=== PATIENT | female | born 1955 ===

== ENCOUNTER 2017-05-12 09:17 | Emergency (ER) | payer OTHER ==
[2017-05-12 09:20] VITALS: BMI 27.3
[2017-05-12 09:23] VITALS: TEMP 97.9; O2SAT 100
[2017-05-12] MEDS ORDERED: Sodium Chloride 0.9% 1,000 ML IV ONE (09:37)
--- NOTE | 2017-05-12 09:45 | C.PDOC ---
History Of Present Illness 61 y/o female presents to ED with complaints of abdominal pain and diarrhea for a "few days. Patient states she has bowel movement after eating and states it is watery. Patient denies fever, chills, nausea, vomiting, bowel incontinence or any other complaints at this time. Time Seen by Provider: 05/12/17 09:26 Chief Complaint (Nursing): Abdominal Pain History Per: Patient History/Exam Limitations: no limitations Onset/Duration Of Symptoms: Days Current Symptoms Are (Timing): Still Present Location Of Pain/Discomfort: Diffuse Associated Symptoms: Diarrhea Past Medical History Reviewed: Historical Data, Nursing Documentation, Vital Signs Vital Signs: Last Vital Signs Temp 97.9 F 05/12/17 09:20 Pulse 68 05/12/17 11:05 Resp 16 05/12/17 11:05 BP 118/71 05/12/17 11:05 Pulse Ox 100 05/12/17 11:05 - Medical History PMH: No Chronic Diseases Surgical History: No Surg Hx Family History: States: No Known Family Hx - Social History Hx Alcohol Use: No Hx Substance Use: No - Immunization History Hx Tetanus Toxoid Vaccination: No Hx Influenza Vaccination: No Hx Pneumococcal Vaccination: No Review Of Systems Constitutional: Negative for: Fever, Chills Gastrointestinal: Positive for: Abdominal Pain, Diarrhea. Negative for: Nausea , Vomiting, Hematochezia Skin: Negative for: Rash Physical Exam - Physical Exam Appears: Non-toxic, No Acute Distress Skin: Warm, Dry, No Rash Head: Atraumatic, Normacephalic Oral Mucosa: Moist Neck: Normal ROM, Supple Cardiovascular: Rhythm Regular Respiratory: Normal Breath Sounds, No Rales, No Rhonchi, No Wheezing Gastrointestinal/Abdominal: Soft, No Tenderness, No Guarding, No Rebound Back: No CVA Tenderness Extremity: Normal ROM, Capillary Refill (<2 seconds) Neurological/Psych: Oriented x3 Gait: Steady ED Course And Treatment - Laboratory Results Result Diagrams: 05/12/17 09:48 05/12/17 09:48 Lab Interpretation: Normal O2 Sat by Pulse Oximetry: 100 (RA) Pulse Ox Interpretation: Normal - Other Rad No standard instances X-Ray: Viewed By Me, Read By Radiologist Interpretation: ABDOMEN AND PELVIS: Bowel: Prominent amount of retained colonic stool. No evidence of mechanical obstruction. Free air: None. Bones: Unremarkable. Other findings: None. IMPRESSION: Unremarkable radiographs of chest and abdomen. No evidence of mechanical bowel obstruction. Progress Note: Blood work, UA ordered. IV fluids administered. On re- evaluation abdomen soft non-tender. discharge in stable condition Reassessment Condition: Improved Disposition Counseled Patient/Family Regarding: Studies Performed, Diagnosis, Need For Followup, Rx Given - Disposition Referrals: [facility] [Outside] [facility] [Outside] Disposition: HOME/ ROUTINE Disposition Time: 11:00 Condition: STABLE Additional Instructions: Drink lots of fluids Follow up with PMD or clinic for further evaluation Prescriptions: Polyethylene Glycol 3350 [Miralax] 17 gm PO DAILY #20 packet Instructions: Constipation in Adults Forms: [employer] (Vietnamese) Print Language: CUBAN - Clinical Impression Clinical Impression: Abdominal pain, Diarrhea - 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 - Scribe Statement The provider has reviewed the documentation as recorded by the Kattyibrichy Sanchez All medical record entries made by the Kattyibe were at my direction and personally dictated by me. I have reviewed the chart and agree that the record accurately reflects my personal performance of the history, physical exam, medical decision making, and the department course for this patient. I have also personally directed, reviewed, and agree with the discharge instructions and disposition.
[2017-05-12 09:57] LABS: BASO # 0.1 K/uL (0.0-0.2); EOS # 0.1 K/uL (0.0-0.7); EOS % 2.1 % (0.0-4.0); HEMOGLOBIN 12.8 g/dL (11.0-16.0); LYMPH # 1.4 K/uL (1.0-4.3); LYMPH % 26.3 % (20.0-40.0); MEAN CELL VOLUME 92.2 fL (81.0-99.0); MEAN CORPUSCULAR HEMOGLOBIN 31.6 pg (27.0-31.0); MEAN CORPUSCULAR HGB CONC 34.3 g/dL (33.0-37.0); MEAN PLATELET VOLUME 7.9 fL (7.2-11.7); MONO # 0.6 K/uL (0.0-0.8); NEUT # 3.3 K/uL (1.8-7.0); NEUT % 59.6 % (50.0-75.0); NRBC % 0.1 % (0.0-2.0); RBC 4.06 Mil/uL (3.80-5.20); RED CELL DISTRIBUTION WIDTH 13.4 % (11.5-14.5); SQUAMOUS EPITHIAL 3 /hpf (0-5); URINE BILIRUBIN NEGATIVE (NEGATIVE); URINE BLOOD NEGATIVE (NEGATIVE); URINE CLARITY Clear (Clear); URINE COLOR Yellow (YELLOW); URINE GLUCOSE (UA) NORMAL (Normal); URINE LEUKOCYTE ESTERASE TRACE Leu/uL (Negative); URINE PROTEIN NEGATIVE (NEGATIVE); URINE UROBILINOGEN NORMAL mg/dL (0.2-1.0); WHITE BLOOD COUNT 5.5 K/uL (4.8-10.8)
[2017-05-12 10:15] LABS: ALB/GLOB RATIO 1.2 (1.0-2.1); ALT/SGPT 132 U/L (9-52); AST/SGOT 75 U/L (14-36); BLOOD UREA NITROGEN 14 mg/dL (7-17); CALCIUM 8.8 mg/dl (8.6-10.4); GFR AFRICAN-AMERICAN > 60; GFR NON-AFRICAN AMERICAN > 60; LIPASE 80 U/L (23-300)
--- NOTE | 2017-05-12 10:35 | RAD ---
PROCEDURE: Radiographs of the chest and abdomen (obstructive series) HISTORY: Abd Pain COMPARISON: No prior. TECHNIQUE: AP radiograph of the chest, with upright and supine radiographs of the abdomen. FINDINGS: CHEST: Lungs: Clear. Cardiovascular: Normal size heart. No pulmonary vascular congestion. Pleura: No pleural fluid. No pneumothorax. Other findings: None. ABDOMEN AND PELVIS: Bowel: Prominent amount of retained colonic stool. No evidence of mechanical obstruction. Free air: None. Bones: Unremarkable. Other findings: None. IMPRESSION: Unremarkable radiographs of chest and abdomen. No evidence of mechanical bowel obstruction.
[2017-05-12 11:06] VITALS: BP 118/71; PULSE 68; RESP 16
== END 2017-05-12 11:21 | disposition home or self-care (01) ==
LOC: C.ER 09:17
DX: R19.7 Diarrhea, unspecified (principal); R10.9 Unspecified abdominal pain
CPT/HCPCS: 74022; 80053; 81001; 83690; 85025; 96360; 99284; J7040

== ENCOUNTER 2017-06-30 09:26 | Emergency (ER) | payer OTHER ==
[2017-06-30 09:26] VITALS: BMI 27.3
[2017-06-30 09:38] VITALS: BP 132/82; PULSE 75; RESP 16; TEMP 98.1; O2SAT 100
--- NOTE | 2017-06-30 10:13 | RAD ---
PROCEDURE: Radiographs of the Left Shoulder HISTORY: r/o fx COMPARISON: No prior. FINDINGS: BONES: No acute fracture. JOINTS: Mild glenohumeral and acromioclavicular joint degenerative change. SOFT TISSUES: Normal. OTHER FINDINGS: None. IMPRESSION: No demonstrated fracture or dislocation. Mild shoulder degenerative changes.
--- NOTE | 2017-06-30 10:24 | C.PDOC ---
History Of Present Illness 61 y/o female presents to the ED complaining of left trapezius pain radiating down the left arm, onset today. Denies acute trauma or fall. Patient has not taken any medication for symptom relief. Denies any changes in sensation or focal weakness. Time Seen by Provider: 06/30/17 10:05 Chief Complaint (Nursing): Upper Extremity Problem/Injury History Per: Patient History/Exam Limitations: no limitations Onset/Duration Of Symptoms: Hrs Current Symptoms Are (Timing): Still Present Past Medical History Reviewed: Historical Data, Nursing Documentation, Vital Signs Vital Signs: Last Vital Signs Temp 98.1 F 06/30/17 09:34 Pulse 75 06/30/17 09:34 Resp 16 06/30/17 09:34 BP 132/82 06/30/17 09:34 Pulse Ox 100 06/30/17 10:47 Other Surgeries: Hysterectomy Family History: States: Unknown Family Hx - Social History Hx Tobacco Use: No Hx Alcohol Use: No Hx Substance Use: No - Immunization History Hx Tetanus Toxoid Vaccination: No Hx Influenza Vaccination: No Hx Pneumococcal Vaccination: No Review Of Systems Except As Marked, All Systems Reviewed And Found Negative. Cardiovascular: Negative for: Chest Pain Respiratory: Negative for: Shortness of Breath Musculoskeletal: Positive for: Shoulder Pain, Arm Pain Neurological: Negative for: Weakness, Numbness Physical Exam - Physical Exam Appears: Non-toxic, No Acute Distress Skin: Normal Color, Warm, Dry Head: Atraumatic, Normacephalic Eye(s): bilateral: Normal Inspection, PERRL, EOMI Neck: Normal ROM Chest: Symmetrical Extremity: Normal ROM, Tenderness (to the left trapezius; on compression of the trapezius, pt complains of pain radiating down left arm), Capillary Refill (< 2 sec), No Deformity, No Swelling Pulses: Left Radial: Normal, Right Radial: Normal Neurological/Psych: Oriented x3, Normal Speech, No Other (focal deficits) ED Course And Treatment O2 Sat by Pulse Oximetry: 100 (RA) Pulse Ox Interpretation: Normal - Other Rad XR L SHOULDER X-Ray: Viewed By Me, Read By Radiologist Interpretation: FINDINGS: BONES: No acute fracture. JOINTS: Mild glenohumeral and acromioclavicular joint degenerative change. SOFT TISSUES: Normal. OTHER FINDINGS: None. IMPRESSION: No demonstrated fracture or dislocation. Mild shoulder degenerative changes. 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 Instructions: Muscle Strain Forms: [employer] (Mongolian) Print Language: CROATIAN - POA Present On Arrival: None - Clinical Impression Clinical Impression: Muscle strain - Scribe Statement The provider has reviewed the documentation as recorded by the Scribe (Kailyn Julian) Provider Attestation: All medical record entries made by the Scribe were at my direction and personally dictated by me. I have reviewed the chart and agree that the record accurately reflects my personal performance of the history, physical exam, medical decision making, and the department course for this patient. I have also personally directed, reviewed, and agree with the discharge instructions and disposition.
== END 2017-06-30 10:27 | disposition home or self-care (01) ==
LOC: C.ER 09:26
DX: S46.912A Strain of unspecified muscle, fascia and tendon at shoulder and upper arm level, left arm, initial encounter (principal)

== ENCOUNTER 2018-06-25 10:33 | Observation (INO) | payer OTHER ==
[2018-06-25 10:33] VITALS: BMI 27.3
[2018-06-25] MEDS ORDERED: Sodium Chloride 0.9% 500 ML IV STA (11:17)
--- NOTE | 2018-06-25 11:21 | C.PDOC ---
History Of Present Illness 62 y/o female pt presents to the ER c/o epigastric abdominal pain for x1 day. Associated sx includes congestion, cough, x1 episode of vomiting and body ache. Pt denies fever, chills, chest pain, SOB and headache. Pt does not have a [facility] doctor and is a pt at [facility]. Time Seen by Provider: 06/25/18 10:50 Chief Complaint (Nursing): Flu-like Symptoms History Per: Patient History/Exam Limitations: no limitations Onset/Duration Of Symptoms: Days (x1) Current Symptoms Are (Timing): Still Present Past Medical History Reviewed: Historical Data, Nursing Documentation, Vital Signs Vital Signs: Last Vital Signs Temp 98.6 F 06/25/18 10:39 Pulse 82 06/25/18 10:39 Resp 18 06/25/18 10:39 BP 136/72 06/25/18 10:39 Pulse Ox 100 06/25/18 10:39 Family History: States: Unknown Family Hx - Social History Hx Tobacco Use: No Hx Alcohol Use: No Hx Substance Use: No - Immunization History Hx Tetanus Toxoid Vaccination: No Hx Influenza Vaccination: No Hx Pneumococcal Vaccination: No Review Of Systems Except As Marked, All Systems Reviewed And Found Negative. Constitutional: Positive for: Other (congestion). Negative for: Fever, Chills Cardiovascular: Negative for: Chest Pain Respiratory: Negative for: Shortness of Breath Gastrointestinal: Positive for: Vomiting (1 episode ), Abdominal Pain (epigastric) Musculoskeletal: Positive for: Other (body ache ) Neurological: Negative for: Headache Physical Exam - Physical Exam Appears: Non-toxic, No Acute Distress Skin: Warm, Dry Head: Normacephalic Eye(s): bilateral: EOMI Ear(s): Bilateral: Normal Nose: Normal Oral Mucosa: Moist Throat: Normal, No Erythema, No Exudate Chest: Symmetrical Cardiovascular: Rhythm Regular Respiratory: Normal Breath Sounds, No Rales, No Rhonchi, No Wheezing Gastrointestinal/Abdominal: Soft, No Tenderness Neurological/Psych: Oriented x3, Normal Speech, Normal Cognition ED Course And Treatment - Laboratory Results Result Diagrams: 06/26/18 00:15 06/26/18 00:15 O2 Sat by Pulse Oximetry: 100 (RA) Pulse Ox Interpretation: Normal - Other Rad chest X-Ray: Read By Radiologist Interpretation: Accession No. : [id number]. Patient Name / ID : JAMEE ISAACS / [id number]. Exam Date : 06/25/2018 11:22:04 ( Approved ). Study Comment : Sex / Age : F / [id number]. Creator : Yolette Reina. Dictator : Lui Perez MD. Inspection Engineer : Director Part : Lui Perez MD. Approver2 : Report Date : 06/25/2018 11:27:24. My Comment : . Date of service: 06/25/2018. PROCEDURE: CHEST RADIOGRAPH, 1 VIEW. HISTORY: cough/cold. COMPARISON: 03/17/2018. FINDINGS: LUNGS: Clear. PLEURA: No pneumothorax or pleural fluid seen. CARDIOVASCULAR: No aortic atherosclerotic calcification present. Normal. OSSEOUS STRUCTURES: No significant abnormalities. VISUALIZED UPPER ABDOMEN: Normal. OTHER FINDINGS: None. IMPRESSION: No active disease. Progress Note: Plans: -- Blood work. -- EKG. Case was d/w Hospitalist who accepted patient to CT for observation. -- CXR. 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 - Scribe Statement The provider has reviewed the documentation as recorded by the Kattyibrichy Fuentes Do All medical record entries made by the Scribe were at my direction and personally dictated by me. I have reviewed the chart and agree that the record accurately reflects my personal performance of the history, physical exam, medical decision making, and the department course for this patient. I have also personally directed, reviewed, and agree with the discharge instructions and disposition. Decision To Admit - Pt Status Changed To: Hospital Disposition Of: Observation - . Bed Request Type: Regular Admitting Physician: Paul Gonzalez Patient Diagnosis: Body aches, Bandemia, Vomiting
[2018-06-25 11:51] LABS: BASO % 0.4 % (0.0-2.0); EOS % 0.3 % (0.0-4.0); HEMOGLOBIN 12.2 g/dL (11.0-16.0); LYMPH # 0.8 K/uL (1.0-4.3); LYMPH % 8.2 % (20.0-40.0); MEAN CORPUSCULAR HEMOGLOBIN 31.7 pg (27.0-31.0); MEAN CORPUSCULAR HGB CONC 34.4 g/dL (33.0-37.0); MEAN PLATELET VOLUME 8.2 fL (7.2-11.7); MONO # 0.3 K/uL (0.0-0.8); MONO % 3.5 % (0.0-10.0); NEUT # 8.3 K/uL (1.8-7.0); NEUT % 87.6 % (50.0-75.0); PLATELET COUNT 222 K/uL (130-400); RBC 3.86 Mil/uL (3.80-5.20); WHITE BLOOD COUNT 9.5 K/uL (4.8-10.8)
[2018-06-25 12:02] LABS: SQUAMOUS EPITHIAL < 1 /hpf (0-5); URINE AMORPHOUS SEDIMENT MODERATE /ul (<OCC); URINE BACTERIA RARE (<OCC); URINE BILIRUBIN NEGATIVE (NEGATIVE); URINE BLOOD NEGATIVE (NEGATIVE); URINE CLARITY Hazy (Clear); URINE COLOR Yellow (YELLOW); URINE GLUCOSE (UA) NORMAL (Normal); URINE LEUKOCYTE ESTERASE NEG Leu/uL (Negative); URINE PROTEIN NEGATIVE (NEGATIVE); URINE UROBILINOGEN NORMAL mg/dL (0.2-1.0)
[2018-06-25 12:11] LABS: ALB/GLOB RATIO 1.3 (1.0-2.1); ALBUMIN 3.8 g/dL (3.5-5.0); ALT/SGPT 58 U/L (9-52); AMYLASE 80 U/L (30-110); AST/SGOT 58 U/L (14-36); BLOOD UREA NITROGEN 12 mg/dL (7-17); CALCIUM 8.7 mg/dl (8.6-10.4); GFR NON-AFRICAN AMERICAN > 60; LIPASE 68 U/L (23-300)
[2018-06-25] MEDS ORDERED: Sodium Chloride 0.9% 500 ML IV ONE (12:15)
[2018-06-25 12:19] LABS: CK-MB 0.37 ng/mL (0.0-3.38)
[2018-06-25 12:29] LABS: INR 1.1; PROTHROMBIN TIME 11.5 SECONDS (9.7-12.2)
[2018-06-25 12:33] LABS: BANDS 19 % (0-2); LYMPHOCYTE 8 % (20-40); MONOCYTE 3 % (0-10); NEUTROPHIL 69 % (50-75); REACTIVE LYMPHOCYTES 1 % (0-0); TOTAL CELLS COUNTED 100
[2018-06-25 12:34] LABS: ANISOCYTOSIS SLIGHT; PLATELET ESTIMATE NORMAL (NORMAL)
[2018-06-25 12:35] LABS: TOXIC GRANULATION PRESENT
[2018-06-25 12:36] LABS: HYPOCHROMIC SLIGHT
[2018-06-25 12:37] LABS: LARGE PLATELETS PRESENT
[2018-06-25] MEDS ORDERED: Sodium Chloride 0.9% 1,000 ML ONE (12:47)
--- NOTE | 2018-06-25 12:53 | CP.PCM.HP ---
<Shaye De Santiago - Last Filed: 06/25/18 14:35> History of Present Illness - History of Present Illness History of Present Illness: PGY-1 Shaye De Santiago H&P for Dr. Gonzalez's service: Patient is a 62 yo female with no significant PMH who presents with weakness and dizziness. She says that she felt weak when she woke up this morning and thought her BP was low. She has diffuse body aches. She also complains of a runny nose and cough for which she has been taking Dayquil. Denies sore throat, chest pain, or SOB. She had one episode of vomiting after which she felt a little better. De nies nausea, abdominal pain, constipation, or diarrhea. She says she has had a normal appetite She denies sick contacts. Denies fevers and chills. Currently, she is no longer dizzy, and weakness improved after receiving fluids. PMH: vit D deficiency, latent TB PSH: hysterectomy 10 years ago Meds: none All: NKA FH: denies SH: lives with daughter, unemplyed, denies alcohol, tobacco, and drug use PMD: [place] Present on Admission - Present on Admission Any Indicators Present on Admission: No History of DVT/PE: No History of Uncontrolled Diabetes: No Urinary Catheter: No Decubitus Ulcer Present: No History Surgical Site Infection Following: None Review of Systems - Constitutional Constitutional: Fatigue, Weakness. absent: Chills, Fever, Headache - EENT Eyes: absent: Change in Vision Ears: absent: Decreased Hearing Nose/Mouth/Throat: Nasal Congestion. absent: Sore Throat - Cardiovascular Cardiovascular: absent: Chest Pain, Palpitations - Respiratory Respiratory: Cough. absent: Dyspnea - Gastrointestinal Gastrointestinal: Vomiting. absent: Abdominal Pain, Constipation, Diarrhea, Nausea - Genitourinary Genitourinary: absent: Dysuria, Hematuria - Reproductive: Female Reproductive:Female: S/P Hysterectomy - Musculoskeletal Musculoskeletal: Myalgias. absent: Numbness, Tingling - Integumentary Integumentary: absent: Lesions, Pruritus, Rash - Neurological Neurological: As Per HPI, Dizziness, Weakness. absent: Focal Weakness, Frequent Falls, Paresthesias, Sensory Deficit - Psychiatric Psychiatric: absent: Anxiety, Depression - Endocrine Endocrine: absent: Polydipsia, Polyuria - Hematologic/Lymphatic Hematologic: absent: Easy Bleeding, Easy Bruising, Lymphadenopathy Past Patient History - Infectious Disease Hx of Infectious Diseases: None - Tetanus Immunizations Tetanus Immunization: Unknown - Past Medical History & Family History Past Medical History?: Yes Past Family History: Reviewed and not pertinent - Past Social History Smoking Status: Never Smoked Chewing Tobacco Use: No Cigar Use: No Alcohol: None Drugs: Denies Home Situation {Lives}: With Family (daughter) - PSYCHIATRIC Hx Substance Use: No - SURGICAL HISTORY Hx Surgeries: Yes Hx Hysterectomy: Yes - ANESTHESIA Hx Anesthesia: Yes Hx Anesthesia Reactions: No Meds Allergies/Adverse Reactions: Allergies Allergy/AdvReac Type Severity Reaction Status Date / Time No Known Allergies Allergy Verified 06/30/17 09:38 Physical Exam - Constitutional Appears: Non-toxic, No Acute Distress - Head Exam Head Exam: ATRAUMATIC, NORMAL INSPECTION - Eye Exam Eye Exam: EOMI, Normal appearance, PERRL - ENT Exam ENT Exam: Mucous Membranes Moist, Normal Oropharynx - Neck Exam Neck exam: Positive for: Normal Inspection. Negative for: Lymphadenopathy, Tenderness - Respiratory Exam Respiratory Exam: Clear to Auscultation Bilateral, NORMAL BREATHING PATTERN. absent: Respiratory Distress - Cardiovascular Exam Cardiovascular Exam: Tachycardia, REGULAR RHYTHM, +S1, +S2 - GI/Abdominal Exam GI & Abdominal Exam: Soft. absent: Distended, Tenderness - Extremities Exam Extremities exam: Positive for: normal inspection, pedal pulses present. Negative for: pedal edema - Back Exam Back exam: NORMAL INSPECTION. absent: CVA tenderness (L), CVA tenderness (R) - Neurological Exam Neurological exam: Alert, CN II-XII Intact, Oriented x3 - Psychiatric Exam Psychiatric exam: Normal Affect, Normal Mood - Skin Skin Exam: Diaphoretic, Normal Color, Warm Results - Vital Signs Recent Vital Signs: Last Vital Signs Temp 98.6 F 06/25/18 10:39 Pulse 82 06/25/18 10:39 Resp 18 06/25/18 10:39 BP 136/72 06/25/18 10:39 Pulse Ox 100 06/25/18 12:47 - Labs Result Diagrams: 06/25/18 11:48 06/25/18 11:48 Labs: Laboratory Results - last 24 hr 06/25/18 06/25/18 06/25/18 11:48 11:48 11:48 WBC 9.5 D RBC 3.86 Hgb 12.2 Hct 35.5 MCV 92.0 MCH 31.7 H MCHC 34.4 RDW 13.0 Plt Count 222 MPV 8.2 Neut % (Auto) 87.6 H Lymph % (Auto) 8.2 L Garland % (Auto) 3.5 Eos % (Auto) 0.3 Baso % (Auto) 0.4 Neut # (Auto) 8.3 H Lymph # (Auto) 0.8 L Garland # (Auto) 0.3 Eos # (Auto) 0.0 Baso # (Auto) 0.0 Neutrophils % (Manual) 69 Band Neutrophils % 19 H* Lymphocytes % (Manual) 8 L Reactive Lymphs % 1 H Monocytes % (Manual) 3 Toxic Granulation Present Platelet Estimate Normal Large Platelets Present Hypochromasia (manual) Slight Anisocytosis (manual) Slight PT 11.5 INR 1.1 APTT 37.0 H Sodium Potassium Chloride Carbon Dioxide Anion Gap BUN Creatinine Est GFR ( Amer) Est GFR (Non-Af Amer) Random Glucose Calcium Total Bilirubin AST ALT Alkaline Phosphatase Total Creatine Kinase CK-MB (Mass) Total Protein Albumin Globulin Albumin/Globulin Ratio Amylase Lipase Urine Color Yellow Urine Clarity Hazy Urine pH 8.0 Ur Specific [place] 1.014 Urine Protein Negative Urine Glucose (UA) Normal Urine Ketones Negative Urine Blood Negative Urine Nitrate Negative Urine Bilirubin Negative Urine Urobilinogen Normal Ur Leukocyte Esterase Neg Urine WBC (Auto) 3 Urine RBC (Auto) 3 Ur Squamous Epith Cells < 1 Amorphous Sediment Moderate H Urine Bacteria Rare Influenza Typ A,B (EIA) 06/25/18 06/25/18 11:48 11:48 WBC RBC Hgb Hct MCV MCH MCHC RDW Plt Count MPV Neut % (Auto) Lymph % (Auto) Garland % (Auto) Eos % (Auto) Baso % (Auto) Neut # (Auto) Lymph # (Auto) Garland # (Auto) Eos # (Auto) Baso # (Auto) Neutrophils % (Manual) Band Neutrophils % Lymphocytes % (Manual) Reactive Lymphs % Monocytes % (Manual) Toxic Granulation Platelet Estimate Large Platelets Hypochromasia (manual) Anisocytosis (manual) PT INR APTT Sodium 141 Potassium 4.0 Chloride 107 Carbon Dioxide 25 Anion Gap 12 BUN 12 Creatinine 0.8 Est GFR ( Amer) > 60 Est GFR (Non-Af Amer) > 60 Random Glucose 104 D Calcium 8.7 Total Bilirubin 0.1 L AST 58 H D ALT 58 H D Alkaline Phosphatase 119 Total Creatine Kinase 66 CK-MB (Mass) 0.37 Total Protein 6.7 Albumin 3.8 Globulin 2.9 Albumin/Globulin Ratio 1.3 Amylase 80 Lipase 68 Urine Color Urine Clarity Urine pH Ur Specific [place] Urine Protein Urine Glucose (UA) Urine Ketones Urine Blood Urine Nitrate Urine Bilirubin Urine Urobilinogen Ur Leukocyte Esterase Urine WBC (Auto) Urine RBC (Auto) Ur Squamous Epith Cells Amorphous Sediment Urine Bacteria Influenza Typ A,B (EIA) Negative for flu a/b - Imaging and Cardiology Chest x-ray Status: Image reviewed by me Assessment & Plan - Assessment and Plan (Free Text) Assessment: Patient is a 62 yo female with no significant PMH who presents with flu-like illness. She is warm and tachycardiac on exam and has bandemia. Will hydrate and treat with antiviral and symptom management. Plan: Flu-like illness, acute - CXR: no active disease - Afebrile - Tachycardic - No leukocytosis but 19 bands - Rapid flu negative - NS @ 100 cc/hr - Tamiflu 75 mg PO BID x5 days - Mucinex LA 600 mg PO BID - Motrin 600 mg Q6H PRN - PT/OT Transaminitis, chronic - AST 58, ALT 58 - Hepatitis panel negative in 01/2018 - HIV pending - Avoid hepatotoxic agents - Recommend outpatient f/u Ppx: VTE: SCDs, heparin 5000 untis Q12H GI: Protonix 40 mg PO daily Diet: Heart healthy Code status: full code Dispo: Monitor labs in AM for resolution of bandemia. Monitor for fever. Case discussed with attending, Dr. Gonzalez. <Paul Gonzalez - Last Filed: 06/25/18 15:01> Results - Vital Signs Recent Vital Signs: Last Vital Signs Temp 99.6 F 06/25/18 14:22 Pulse 88 06/25/18 14:22 Resp 20 06/25/18 14:22 BP 155/87 H 06/25/18 14:22 Pulse Ox 98 06/25/18 14:22 - Labs Result Diagrams: 06/25/18 11:48 06/25/18 11:48 Labs: Laboratory Results - last 24 hr 06/25/18 06/25/18 06/25/18 11:48 11:48 11:48 WBC 9.5 D RBC 3.86 Hgb 12.2 Hct 35.5 MCV 92.0 MCH 31.7 H MCHC 34.4 RDW 13.0 Plt Count 222 MPV 8.2 Neut % (Auto) 87.6 H Lymph % (Auto) 8.2 L Garland % (Auto) 3.5 Eos % (Auto) 0.3 Baso % (Auto) 0.4 Neut # (Auto) 8.3 H Lymph # (Auto) 0.8 L Garland # (Auto) 0.3 Eos # (Auto) 0.0 Baso # (Auto) 0.0 Neutrophils % (Manual) 69 Band Neutrophils % 19 H* Lymphocytes % (Manual) 8 L Reactive Lymphs % 1 H Monocytes % (Manual) 3 Toxic Granulation Present Platelet Estimate Normal Large Platelets Present Hypochromasia (manual) Slight Anisocytosis (manual) Slight PT 11.5 INR 1.1 APTT 37.0 H Sodium Potassium Chloride Carbon Dioxide Anion Gap BUN Creatinine Est GFR ( Amer) Est GFR (Non-Af Amer) Random Glucose Calcium Total Bilirubin AST ALT Alkaline Phosphatase Total Creatine Kinase CK-MB (Mass) Total Protein Albumin Globulin Albumin/Globulin Ratio Amylase Lipase Urine Color Yellow Urine Clarity Hazy Urine pH 8.0 Ur Specific [place] 1.014 Urine Protein Negative Urine Glucose (UA) Normal Urine Ketones Negative Urine Blood Negative Urine Nitrate Negative Urine Bilirubin Negative Urine Urobilinogen Normal Ur Leukocyte Esterase Neg Urine WBC (Auto) 3 Urine RBC (Auto) 3 Ur Squamous Epith Cells < 1 Amorphous Sediment Moderate H Urine Bacteria Rare Influenza Typ A,B (EIA) 06/25/18 06/25/18 11:48 11:48 WBC RBC Hgb Hct MCV MCH MCHC RDW Plt Count MPV Neut % (Auto) Lymph % (Auto) Garland % (Auto) Eos % (Auto) Baso % (Auto) Neut # (Auto) Lymph # (Auto) Garland # (Auto) Eos # (Auto) Baso # (Auto) Neutrophils % (Manual) Band Neutrophils % Lymphocytes % (Manual) Reactive Lymphs % Monocytes % (Manual) Toxic Granulation Platelet Estimate Large Platelets Hypochromasia (manual) Anisocytosis (manual) PT INR APTT Sodium 141 Potassium 4.0 Chloride 107 Carbon Dioxide 25 Anion Gap 12 BUN 12 Creatinine 0.8 Est GFR ( Amer) > 60 Est GFR (Non-Af Amer) > 60 Random Glucose 104 D Calcium 8.7 Total Bilirubin 0.1 L AST 58 H D ALT 58 H D Alkaline Phosphatase 119 Total Creatine Kinase 66 CK-MB (Mass) 0.37 Total Protein 6.7 Albumin 3.8 Globulin 2.9 Albumin/Globulin Ratio 1.3 Amylase 80 Lipase 68 Urine Color Urine Clarity Urine pH Ur Specific [place] Urine Protein Urine Glucose (UA) Urine Ketones Urine Blood Urine Nitrate Urine Bilirubin Urine Urobilinogen Ur Leukocyte Esterase Urine WBC (Auto) Urine RBC (Auto) Ur Squamous Epith Cells Amorphous Sediment Urine Bacteria Influenza Typ A,B (EIA) Negative for flu a/b Attending/Attestation - Attestation I have personally seen and examined this patient.: Yes I have fully participated in the care of the patient.: Yes I have reviewed all pertinent clinical information: Yes Notes (Text): she is a 62 years old female came for body aches and pain,dizziness and weakness since this morning. Patient denies fever,no abdominal pain,no nausea,no vomiting and no diarrhea at home. Vomited once in the ER. No urinary symptoms,has dry cough. In the ER has normal chest xray. has bandemia and elevated LFT,h/o t ransaminitis,negative hep panel in the past.influenza negative and UA negative for Influenza .on exam she is warm and tacy,clear lungs,abdomen soft and nontender. Bandemia-r/o infection Plan.-Observation admission,hydration,follow cbc,Treat like influenza DO HIV ,follow LFT as an out pt.Discussed about follow up with the pt and asked to stop taking tylenol and over the counter meds
[2018-06-25] MEDS: Sodium Chloride 0.9% 1,000 ML IV SCH ×2 (13:05→14:24)
[2018-06-25 14:23] VITALS: RESP 20
[2018-06-25] MEDS: Pantoprazole 40 mg EC Tab PO SCH (14:24)
--- NOTE | 2018-06-25 16:27 | RAD ---
Date of service: 06/25/2018 PROCEDURE: CHEST RADIOGRAPH, 1 VIEW HISTORY: cough/cold COMPARISON: 03/17/2018 FINDINGS: LUNGS: Clear. PLEURA: No pneumothorax or pleural fluid seen. CARDIOVASCULAR: No aortic atherosclerotic calcification present. Normal. OSSEOUS STRUCTURES: No significant abnormalities. VISUALIZED UPPER ABDOMEN: Normal. OTHER FINDINGS: None. IMPRESSION: No active disease.
[2018-06-25] MEDS: guaiFENesin 600 mg ER Tab PO SCH (17:58)
[2018-06-26 00:31] LABS: BASO % 0.4 % (0.0-2.0); EOS # 0.1 K/uL (0.0-0.7); EOS % 2.2 % (0.0-4.0); HEMOGLOBIN 11.5 g/dL (11.0-16.0); LYMPH # 0.9 K/uL (1.0-4.3); MEAN CELL VOLUME 94.2 fL (81.0-99.0); MEAN CORPUSCULAR HGB CONC 32.9 g/dL (33.0-37.0); MEAN PLATELET VOLUME 8.4 fL (7.2-11.7); MONO # 0.5 K/uL (0.0-0.8); MONO % 7.8 % (0.0-10.0); NEUT # 4.5 K/uL (1.8-7.0); NEUT % 74.6 % (50.0-75.0); RBC 3.72 Mil/uL (3.80-5.20); RED CELL DISTRIBUTION WIDTH 13.4 % (11.5-14.5)
[2018-06-26 00:34] LABS: ALB/GLOB RATIO 1.3 (1.0-2.1); ALBUMIN 4.2 g/dL (3.5-5.0); CALCIUM 8.9 mg/dl (8.6-10.4)
[2018-06-26 08:40] VITALS: BP 135/54; PULSE 77; TEMP 98.3
[2018-06-26] MEDS: Sodium Chloride 0.9% 1,000 ML IV SCH (09:00)
[2018-06-26] MEDS: Pantoprazole 40 mg EC Tab PO SCH (09:45)
[2018-06-26] MEDS: guaiFENesin 600 mg ER Tab PO SCH (09:46)
[2018-06-26 10:59] VITALS: O2SAT 100
--- NOTE | 2018-06-26 11:43 | CP.PCM.DIS ---
Provider - Provider Date of Admission: 06/25/18 12:44 Attending physician: Paul Gonzalez MD Primary care physician: Arpit Time Spent in preparation of Discharge (in minutes): 45 Diagnosis - Discharge Diagnosis (1) Nonspecific syndrome suggestive of viral illness Status: Acute Priority: High (2) Transaminitis Status: Chronic Priority: Medium Hospital Course - Lab Results Lab Results: Most Recent Lab Values WBC 6.0 K/uL (4.8-10.8) 06/26/18 00:15 RBC 3.72 Mil/uL (3.80-5.20) L 06/26/18 00:15 Hgb 11.5 g/dL (11.0-16.0) 06/26/18 00:15 Hct 35.1 % (34.0-47.0) 06/26/18 00:15 MCV 94.2 fL (81.0-99.0) D 06/26/18 00:15 MCH 31.0 pg (27.0-31.0) 06/26/18 00:15 MCHC 32.9 g/dL (33.0-37.0) L 06/26/18 00:15 RDW 13.4 % (11.5-14.5) 06/26/18 00:15 Plt Count 190 K/uL (130-400) 06/26/18 00:15 MPV 8.4 fL (7.2-11.7) 06/26/18 00:15 Neut % (Auto) 74.6 % (50.0-75.0) 06/26/18 00:15 Lymph % (Auto) 15.0 % (20.0-40.0) L 06/26/18 00:15 [place] % (Auto) 7.8 % (0.0-10.0) 06/26/18 00:15 Eos % (Auto) 2.2 % (0.0-4.0) 06/26/18 00:15 Baso % (Auto) 0.4 % (0.0-2.0) 06/26/18 00:15 Neut # (Auto) 4.5 K/uL (1.8-7.0) 06/26/18 00:15 Lymph # (Auto) 0.9 K/uL (1.0-4.3) L 06/26/18 00:15 Hardin # (Auto) 0.5 K/uL (0.0-0.8) 06/26/18 00:15 Eos # (Auto) 0.1 K/uL (0.0-0.7) 06/26/18 00:15 Baso # (Auto) 0.0 K/uL (0.0-0.2) 06/26/18 00:15 Neutrophils % (Manual) 69 % (50-75) 06/25/18 11:48 Band Neutrophils % 19 % (0-2) H* 06/25/18 11:48 Lymphocytes % (Manual) 8 % (20-40) L 06/25/18 11:48 Reactive Lymphs % 1 % (0-0) H 06/25/18 11:48 Monocytes % (Manual) 3 % (0-10) 06/25/18 11:48 Toxic Granulation Present 06/25/18 11:48 Platelet Estimate Normal (NORMAL) 06/25/18 11:48 Large Platelets Present 06/25/18 11:48 Hypochromasia (manual) Slight 06/25/18 11:48 Anisocytosis (manual) Slight 06/25/18 11:48 PT 11.5 SECONDS (9.7-12.2) 06/25/18 11:48 INR 1.1 06/25/18 11:48 APTT 37.0 SECONDS (21-34) H 06/25/18 11:48 Sodium 140 mmol/L (132-148) 06/26/18 00:15 Potassium 4.4 mmol/L (3.6-5.2) 06/26/18 00:15 Chloride 105 mmol/L (98-107) 06/26/18 00:15 Carbon Dioxide 28 mmol/L (22-30) 06/26/18 00:15 Anion Gap 12 (10-20) 06/26/18 00:15 BUN 31 mg/dL (7-17) H 06/26/18 00:15 Creatinine 1.2 mg/dL (0.7-1.2) 06/26/18 00:15 Est GFR ( Amer) 55 06/26/18 00:15 Est GFR (Non-Af Amer) 46 06/26/18 00:15 Random Glucose 102 mg/dL (65-105) 06/26/18 00:15 Calcium 8.9 mg/dl (8.6-10.4) 06/26/18 00:15 Phosphorus 4.4 mg/dL (2.5-4.5) 06/26/18 00:15 Magnesium 1.9 mg/dL (1.6-2.3) 06/26/18 00:15 Total Bilirubin 0.3 mg/dL (0.2-1.3) 06/26/18 00:15 AST 32 U/L (14-36) 06/26/18 00:15 ALT 38 U/L (9-52) 06/26/18 00:15 Alkaline Phosphatase 80 U/L (38-126) 06/26/18 00:15 Total Creatine Kinase 66 U/L (30-135) 06/25/18 11:48 CK-MB (Mass) 0.37 ng/mL (0.0-3.38) 06/25/18 11:48 Total Protein 7.3 g/dL (6.3-8.3) 06/26/18 00:15 Albumin 4.2 g/dL (3.5-5.0) 06/26/18 00:15 Globulin 3.2 gm/dL (2.2-3.9) 06/26/18 00:15 Albumin/Globulin Ratio 1.3 (1.0-2.1) 06/26/18 00:15 Amylase 80 U/L (30-110) 06/25/18 11:48 Lipase 68 U/L (23-300) 06/25/18 11:48 Urine Color Yellow (YELLOW) 06/25/18 11:48 Urine Clarity Hazy (Clear) 06/25/18 11:48 Urine pH 8.0 (5.0-8.0) 06/25/18 11:48 Ur Specific [place] 1.014 (1.003-1.030) 06/25/18 11:48 Urine Protein Negative mg/dL (NEGATIVE) 06/25/18 11:48 Urine Glucose (UA) Normal mg/dL (Normal) 06/25/18 11:48 Urine Ketones Negative mg/dL (NEGATIVE) 06/25/18 11:48 Urine Blood Negative (NEGATIVE) 06/25/18 11:48 Urine Nitrate Negative (NEGATIVE) 06/25/18 11:48 Urine Bilirubin Negative (NEGATIVE) 06/25/18 11:48 Urine Urobilinogen Normal mg/dL (0.2-1.0) 06/25/18 11:48 Ur Leukocyte Esterase Neg Franky/uL (Negative) 06/25/18 11:48 Urine WBC (Auto) 3 /hpf (0-5) 06/25/18 11:48 Urine RBC (Auto) 3 /hpf (0-3) 06/25/18 11:48 Ur Squamous Epith Cells < 1 /hpf (0-5) 06/25/18 11:48 Amorphous Sediment Moderate /ul (<OCC) H 06/25/18 11:48 Urine Bacteria Rare (<OCC) 06/25/18 11:48 Influenza Typ A,B (EIA) Negative for flu a/b (NEGATIVE) 06/25/18 11:48 - Hospital Course Hospital Course: Patient is a 62 yo female with no significant PMH who presents with weakness and dizziness. She says that she felt weak when she woke up this morning and thought her BP was low. She has diffuse body aches. She also complains of a runny nose and cough for which she has been taking Dayquil. Denies sore throat, chest pain, or SOB. She had one episode of vomiting after which she felt a little better. Denies nausea, abdominal pain, constipation, or diarrhea. She says she has had a normal appetite She denies sick contacts. Denies fevers and chills. Currently, she is no longer dizzy, and weakness improved after receiving fluids. Patient was admitted for a flu-like illness with bandemia. Rapid flu was negative. CXR did not show active disease. Patient did not have objective fever, but she felt warm and was tachycardic on exam. She was given IVF and started on Tamiflu. She was also treated symptomatically with Mucinex and Motrin. She was seen by PT, and she was able to walk steadily and function independently (they did not recommend any services) Patient was noted to have mild transaminitis, which she has had on prior labs. Both AST and ALT were wnl on discharge. Patient was explained to not take Tylenol. Upon discharge, patient stated that she was feeling much better. Vitals and labs were stable. She was tolerating PO intake. Bandemia resolved. Patient was encouraged to stay hydrated. She will finish a 5-day course of Tamiflu and follo w-up at the clinic. Discharge Exam - Head Exam Head Exam: ATRAUMATIC, NORMAL INSPECTION - Eye Exam Eye Exam: EOMI, Normal appearance - ENT Exam ENT Exam: Mucous Membranes Moist - Neck Exam Neck exam: Full Rom, Normal Inspection - Respiratory Exam Respiratory Exam: Clear to PA & Lateral, NORMAL BREATHING PATTERN, UNREMARKABLE - Cardiovascular Exam Cardiovascular Exam: RRR, +S1, +S2 - GI/Abdominal Exam GI & Abdominal Exam: Normal Bowel Sounds, Soft, Unremarkable - Extremities Exam Extremities exam: normal inspection - Back Exam Back exam: NORMAL INSPECTION - Neurological Exam Neurological exam: Alert, CN II-XII Intact, Normal Gait, Oriented x3 - Psychiatric Exam Psychiatric exam: Normal Affect, Normal Mood - Skin Skin Exam: Dry, Normal Color, Warm Discharge Plan - Discharge Medications Prescriptions: Oseltamivir Cap [Tamiflu Cap] 75 mg PO BID #8 capsule - Follow Up Plan Condition: IMPROVED Disposition: HOME/ ROUTINE Patient education suggested?: Yes Instructions: Acute Pain, Adult (DC), Nausea and Vomiting, Adult (DC), Oseltamivir, Leukocytosis (DC) Additional Instructions: Follow-up in the [facility] clinic within 1 week of discharge. Take Tamiflu 75 mg two times a day for the next 4 days. Drink plenty of fluids to stay hydrated. If symptoms worsen or recur, return to the nearest emergency room. Seguimiento en la clnica de reynaldo del vecindario dentro de maría elena semana despus del feliberto. [place] Tamiflu 75 mg dos veces al da alexandra los prximos 4 noel. Merry muchos lquidos para mantenerse hidratado. Si los sntomas empeoran o reaparecen, regrese a la joseph de emergencias ms cercana. Referrals: [facility] at [facility] [Outside]
[2018-06-26] MEDS ORDERED: Pneumococcal 23-Valent Vaccine IM ONE (12:45)
[2018-06-27] MEDS ORDERED: Pneumococcal 23-Valent Vaccine IM ONE (10:00)
--- NOTE | 2018-06-28 12:49 | CARD ---
APPROVED REPORT Date of service: 06/25/2018 EKG Measurement Heart [id number] <Conclusion> Normal sinus rhythm Prolonged QT Abnormal ECG
== END 2018-06-26 13:19 | disposition home or self-care (01) ==
LOC: C.ER 10:33 → C.9E 12:44 → C.3T 13:00
PROVIDERS: ADMIT Internal Medicine; ATTEND Internal Medicine
DX: B34.9 Viral infection, unspecified (principal); D72.825 Bandemia; R74.0 Nonspecific elevation of levels of transaminase and lactic acid dehydrogenase [LDH]; E55.9 Vitamin D deficiency, unspecified; Z23 Encounter for immunization; Z90.710 Acquired absence of both cervix and uterus
CPT/HCPCS: 36415; 71045; 80053; 81001; 82150; 82550; 82553; 83690; 83735; 84100; 85025; 85610; 85730; 86703; 87804; 90471; 90732; 96372; 96374; 97110; 97161; 99284; G0378; G8978; G8979; G8980; J1644; J1885; J7030; J7040